=== PATIENT | female | born 1970 | race Caucasian/White ===

== ENCOUNTER → 2017-02-19 | Outpatient (CLI) | payer OTHER ==
[~2017-02-19] MED LIST: NONE at this time
== END | disposition home or self-care (01) ==
LOC: STAR 08:24
PROVIDERS: ATTEND Surgery
DX: Z02.9 Encounter for administrative examinations, unspecified (principal)

== ENCOUNTER 2017-02-27 10:39 | Day surgery (SDC) | payer OTHER ==
[~2017-02-27] VITALS: Ht 172.7 cm; Wt 65.9 kg
[~2017-02-27 10:39] MED LIST changes: +BACITRACIN 50,000 UNIT ONE; +BUPIVACAINE/PF-EPI 0.5% 1:200K ONE; +CEFAZOLIN 1,000 MG ONE; +GENTAMICIN 80 MG/2 ML ONE; +ISOSULFAN BLUE 10 MG/ML, 5ML IV ONE; +ROPIvacaine/PF 0.5%, 20 ML ONE
[2017-02-27 11:12] VITALS: BP 108/69
[2017-02-27] MEDS ORDERED: LACTATED RINGERS 1,000 ML IV SCH (11:14)
[2017-02-27 12:30] LABS: HCG UR OBC PASS
[2017-02-27] MEDS ORDERED: BUPIVACAINE/PF 0.5% ONE (13:06)
[2017-02-27] MEDS ORDERED: hydrALAzine 20 MG/ML, 1ML IV PRN (13:30)
[2017-02-27] MEDS ORDERED: ONDANSETRON 2MG/ML, 2ML IVPush PRN ×2 (13:30→17:00)
[2017-02-27] MEDS ORDERED: ACETAMINOPHEN 325 MG TABLET PO PRN (13:30)
[2017-02-27] MEDS ORDERED: MEPERIDINE/PF 25MG/0.5ML IVPush PRN (13:30)
[2017-02-27] MEDS ORDERED: MIDAZOLAM 1 MG/ML, 2ML IV PRN (13:30)
[2017-02-27] MEDS ORDERED: OXYcodone 5 MG/5 ML ORAL.SOL UDC PO PRN (13:30)
[2017-02-27] MEDS ORDERED: LABETALOL 5MG/ML, 20ML IV PRN (13:30)
[2017-02-27] MEDS ORDERED: PROMETHAZINE 25 MG/ML, 1ML IV PRN (13:30)
[2017-02-27] MEDS ORDERED: FENTANYL PF 100 MCG/2ML IV PRN (13:30)
[2017-02-27] MEDS ORDERED: FENTANYL PF 100 MCG/2ML ONE (14:35)
[2017-02-27] MEDS ORDERED: ACETAMINOPHEN 650 MG/20.3 ML UDC ONE (14:35)
[2017-02-27] MEDS ORDERED: OXYcodone 5 MG/5 ML ORAL.SOL UDC ONE (14:35)
[2017-02-27] MEDS ORDERED: HYDROmorphone 1 MG/ML, 1ML ONE (14:53)
[2017-02-27] MEDS: HYDROmorphone 1 MG/ML, 1ML IV PRN ×2 (14:56→15:05)
[2017-02-27] MEDS ORDERED: MORPHINE SULFATE 4 MG/ML, 1ML ONE (15:54)
[2017-02-27] MEDS ORDERED: MORPHINE SULFATE 4 MG/ML, 1ML IVPush PRN (16:00)
[2017-02-27] MEDS ORDERED: CEFAZOLIN 1,000 MG ONE (16:09)
[2017-02-27] MEDS ORDERED: METOCLOPRAMIDE 5 MG/ML, 2ML ONE (16:09)
[2017-02-27] MEDS ORDERED: ESMOLOL 100 MG/10 ML ONE (16:09)
[2017-02-27] MEDS ORDERED: KETAMINE 10 MG/ML, 20ML ONE (16:09)
[2017-02-27] MEDS ORDERED: ROCURONIUM 10 MG/ML ONE (16:09)
[2017-02-27] MEDS ORDERED: ONDANSETRON 2MG/ML, 2ML ONE ×2 (16:09→16:47)
[2017-02-27] MEDS ORDERED: PROPOFOL 10 MG/ML, 20ML ONE (16:09)
[2017-02-27] MEDS ORDERED: DEXAMETHASONE 4 MG/ML, 1ML ONE (16:09)
== END 2017-02-27 17:30 ==
LOC: OUT 10:39
PROVIDERS: ATTEND Surgery
DX: D05.11 Intraductal carcinoma in situ of right breast (principal)
CPT/HCPCS: 19303; 19357; 81025; 88307; C1729; C1762; J0690; J1100; J1170; J1580; J2405; J2704; J2765; J3010; J3490; J7120; J2795